=== PATIENT | male | born 1970 | race Caucasian/White ===

== ENCOUNTER → 2022-05-26 11:05 | Outpatient (CLI) | payer BC, SELFPAY ==
--- NOTE | 2022-05-26 11:09 | DI.RAD.S_ITS ---
PROCEDURE: XR KNEE LT 3V INDICATIONS: knee pain TECHNIQUE: 3 views of the knee were acquired. COMPARISON: None. FINDINGS: Bones: No fractures or dislocations. No suspicious bony lesions. Patella enthesophyte. Trace osteophyte formation. Soft tissues: No joint effusion. No suspicious soft tissue calcifications. IMPRESSION: No acute radiographic abnormality. Trace osteophyte formation. Patellar enthesopathy. Consider MRI if there is high concern for internal derangement. Dictated by: Serge Edwards M.D. on 05/26/2022 at 13:01 Approved by: Serge Edwards M.D. on 05/26/2022 at 13:02
[2022-05-26 13:29] LABS: Alanine Aminotransferase 25 IU/L (<50); Albumin Globulin Ratio 1.3 (1.0-2.8); Alkaline Phosphatase 46 U/L (38-126); Aspartate Aminotransferase 25 IU/L (17-59); BUN Creatinine Ratio 18.9 (6-22); Bilirubin Total 0.5 mg/dL (0.2-1.3); Blood Urea Nitrogen 25 mg/dL (9-20); Calcium 9.1 mg/dL (8.4-10.2); Carbon Dioxide 27 mmol/L (22-32); Chloride 106 mmol/L (98-107); Cholesterol 267 mg/dL (140-199); Estimated Glomerular Filt Rate > 60 mL/min (>60); Globulin 3.2 g/dL (1.7-4.1); Glucose 89 mg/dL (70-100); HDL Cholesterol 51 mg/dL (40-60); HEMOLYSIS < 15 (0-50); LDL Cholesterol Calculated 195 mg/dL (<100); Sodium 139 mmol/L (137-145); Total Protein 7.2 g/dL (6.3-8.2); Triglycerides 107 mg/dL (35-150); Uric Acid 7.8 mg/dL (3.5-8.5)
[2022-05-26 14:03] LABS: Prostate Specific Antigen Scrn < 0.064 ng/mL (0.1-4.0)
[2022-05-26 16:43] LABS: Microalbumin Urine Random 34.5 mg/dL (0-1.6)
[2022-05-26 17:50] LABS: Creatinine Urine Random 124.6 mg/dL; Microalbumi Creatinin Ratio Ur 276.8 ug/mg CR (<30)
== END ==
PROVIDERS: Referring Provider Family Medicine; Visit Provider Family Medicine
DX: M10.9 Gout, unspecified; M25.562 Pain in left knee; I10 Essential (primary) hypertension; M77.8 Other enthesopathies, not elsewhere classified; Z85.46 Personal history of malignant neoplasm of prostate
CPT/HCPCS: 36415; 73562; 80053; 80061; 82043; 82570; 84550; G0103

== ENCOUNTER → 2022-06-30 12:27 | Outpatient (CLI) | payer BC, SELFPAY | PROVIDERS: Referring Provider Physician Assistant; Visit Provider Physician Assistant | DX: M22.42 Chondromalacia patellae, left knee (principal); M25.562 Pain in left knee ==

== ENCOUNTER → 2022-07-11 08:09 | Outpatient (CLI) | payer BC, SELFPAY ==
--- NOTE | 2022-07-11 | DI.MRI.S_ITS ---
PROCEDURE: MR KNEE LT WO CON INDICATIONS: Chondromalacia patellae, left knee TECHNIQUE: Noncontrast sagittal PD fast spin echo and T2 fast spin echo with fat saturation, sagittal 3-D FLASH with fat saturation; coronal T1 spin echo and PD fast spin echo with fat saturation, and axial PD fast spin echo with fat saturation through the knee. COMPARISON: [facility], CR, XR KNEE LT 3V, 05/26/2022, 11:31. FINDINGS: Image quality: Excellent. Menisci: No discrete tear of the lateral meniscus. The meniscal popliteal fascicles are intact. Complex tear of the posterior horn of the medial meniscus, almost extending to the root, also involving the free edge of the body. Cruciate ligaments: Intact. Medial structures: MCL is intact. The anserine tendons and semimembranosus are intact. No Barnhart's cyst. Lateral structures: The iliotibial band, LCL/biceps conjoined tendon, and popliteus are intact. Anterior structures: Some thickening of the quadriceps insertion could be due to enthesopathy. The extensor mechanism is otherwise intact. No significant Hoffa's fat pad edema. Trace prepatellar edema. Intact medial retinaculum. Bones and cartilage: No acute fracture. Moderate chondromalacia of the medial compartment with heterogeneity with multiple high-grade partial-thickness defects. Similar findings are seen in the patellofemoral cartilage. There is relative sparing of the lateral cartilage. Joint space: Small joint effusion. IMPRESSION: Moderate overall arthrosis with relative sparing of the lateral compartment. Complex tear of the medial meniscus. Small joint effusion. Dictated by: Serge Edwards M.D. on 07/11/2022 at 10:46 Approved by: Serge Edwrads M.D. on 07/11/2022 at 10:52
== END ==
PROVIDERS: PCP Family Medicine; Referring Provider Physician Assistant; Visit Provider Physician Assistant
DX: S83.232A Complex tear of medial meniscus, current injury, left knee, initial encounter (principal); M22.42 Chondromalacia patellae, left knee; M25.462 Effusion, left knee
CPT/HCPCS: 73721

== ENCOUNTER → 2022-10-22 08:53 | Outpatient (CLI) | payer BC, SELFPAY ==
--- NOTE | 2022-10-22 | DI.ECHO.S_ITS ---
[facility]---------+ [facility] +---------+ : : [address] : [place] : : : : [id number] : : : : Phone: [phone]+ Echocardiogram Report + + :Name: CRISS CHAMBERS Study Date: 10/22/2022 Height: 69 in : :[facility] ReadingLocation: Weight: 236 lb : : Gender: Male BSA: 2.2 m2 : :: 1970 Age: 51 yrs BP: 155/100 mmHg: :Reason For Study: AORTIC VALVE DISORDER : :Ordering Physician: GIL, : :KYLAH Barrera Performed By: Julianna Messina : :Referring: KYLAH CUMMIGNS : + + Interpretation Summary There is mild concentric left ventricular hypertrophy. The ejection fraction is estimated to be 55-60%. Diastolic function could not be accurately assessed due to contradictory data. The right ventricle is normal in size and function. The aortic bioprosthetic valve is well-seated. There is possible mild prosthesis stenosis versus patient prosthesis mismatch. Overall effective orifice area is normal. There is mild tricuspid regurgitation. The right ventricular systolic pressure is estimated to be at least 21 mmHg based on an estimated right atrial pressure of 3 mm Hg. The ascending aorta is moderately enlarged. Procedure: A two-dimensional transthoracic echocardiogram with color flow and Doppler was performed. The study quality was technically adequate. There is no prior echocardiogram noted for this patient. The patient was in sinus rhythm with heart rates between 75-84 bpm during the exam. Left Ventricle: There is mild concentric left ventricular hypertrophy. The left ventricle is normal in size. Proximal septal thickening is noted. The ejection fraction is estimated to be 55-60%. Diastolic function could not be accurately assessed due to contradictory data. Right Ventricle: The right ventricle is normal in size and function. Atria: The left atrium is moderately dilated. Right atrial size is normal. There is no Doppler evidence for an interatrial shunt. Mitral Valve: There is mild mitral annular calcification. The mitral valve leaflets appear mildly thickened, but open well. There is mild mitral regurgitation. Aortic Valve: There is a bioprosthetic aortic valve. The prosthetic aortic valve is well-seated. The peak aortic velocity is 3.2 m/sec. The aortic valve mean gradient is 25 mmHg. EOA 1.32 pigment processor?, indexed EOA 0.6 pigment processor?/mA?. DVI 0.35. AT 98 ms. There is trace aortic regurgitation. Tricuspid Valve: The tricuspid valve is normal in structure and function. There is mild tricuspid regurgitation. The right ventricular systolic pressure is estimated to be at least 21 mmHg based on an estimated right atrial pressure of 3 mm Hg. Pulmonic Valve: The pulmonic valve leaflets are thin and pliable; valve motion is normal. There is mild pulmonic regurgitation. Great Vessels: The ascending aorta is moderately enlarged. The IVC is of normal diameter and collapses greater than 50% with a sniff. This suggests a low right atrial pressure of 3 mm Hg. Pericardium/ Pleura There is no pericardial effusion. There is no pleural effusion. MMode/2D Measurements & Calculations LVIDd: 5.0 cm LVOT diam: 2.2 cm LVIDs: 2.8 cm asc Aorta Diam: 4.5 cm FS: 43.5 % Ao Arch Diam (Prox Trans): 3.0 cm EPSS: 0.79 cm IVSd: 1.1 cm LVPWd: 1.1 cm LV gonzales. diameter/BSA (cm/m^2): 2.3 LV sys. diameter/BSA (cm/m^2): 1.3 LA A2 area: 29.4 cm2 RA long axis: 5.3 cm LA A4 area: 19.8 cm2 RA area: 16.8 cm2 LA length (vol): 5.0 cm RA vol: 45.1 ml LA vol: 98.7 ml RA : 20.4 ml/m2 LA vol index: 44.5 ml/m2 IVC diam: 1.4 cm RVD1 (basal): 3.9 cm TAPSE: 1.5 cm Doppler Measurements & Calculations Ao V2 max: 290.4 cm/sec LVOT Max Arthur: 102.5 cm/sec Ao V2 mean: 216.0 cm/sec LV V1 max P.2 mmHg Ao max P.6 mmHg LV V1 VTI: 22.7 cm Ao mean P.2 mmHg BJ(I,D): 1.4 cm2 Ao V2 VTI: 60.1 cm BJ(V,D): 1.3 cm2 sev ratio: 0.38 BJ indexed to BSA (cm^2/m^2): 0.63 MV E max arthur: 71.4 cm/sec TR max arthur: 214.6 cm/sec MV A max arthur: 73.0 cm/sec TR max P.4 mmHg MV E/A: 0.98 PA V2 max: 86.7 cm/sec Med Peak E' Arthur: 5.2 cm/sec PA V2 mean: 68.9 cm/sec E/E' med: 13.8 PA mean P.0 mmHg Lat Peak E' Arthur: 7.3 cm/sec PA pr(Accel): 24.2 mmHg E/E' lat: 9.7 E/e' average: 11.8 MV dec time: 0.23 sec SV(LVOT): 83.9 ml Reading Physician:11:54 AM
== END ==
PROVIDERS: PCP Family Medicine; Referring Provider Internal Medicine Cardiovascular Disease; Visit Provider Internal Medicine Cardiovascular Disease
DX: I08.1 Rheumatic disorders of both mitral and tricuspid valves (principal); I77.89 Other specified disorders of arteries and arterioles; Z95.2 Presence of prosthetic heart valve
CPT/HCPCS: 93306

== ENCOUNTER → 2023-02-05 09:43 | Outpatient (CLI) | payer BC, SELFPAY ==
--- NOTE | 2023-02-05 09:46 | DI.RAD.S_ITS ---
PROCEDURE: XR KUB INDICATIONS: Renal calculi TECHNIQUE: One view of the abdomen acquired. COMPARISON: None. FINDINGS: Surgical changes and devices: None. Bowel: Bowel gas pattern is normal. Soft tissues: No suspicious abdominal calcifications. Visualized solid organ contours appear normal in size. Bones: No suspicious bony lesions. IMPRESSION: No definitive calcifications overlying the renal shadows or the expected course of the ureters. Dictated by: Roxy Pavon M.D. on 02/05/2023 at 18:42 Approved by: Roxy Pavon M.D. on 02/05/2023 at 18:42
[2023-02-05 11:31] LABS: Creatinine Urine Random 201.1 mg/dL
[2023-02-05 11:39] LABS: Blood Urea Nitrogen 21 mg/dL (9-20); Calcium 9.6 mg/dL (8.4-10.2); Carbon Dioxide 28 mmol/L (22-32); Chloride 104 mmol/L (98-107); Cholesterol 317 mg/dL (140-199); Estimated Glomerular Filt Rate 60 mL/min (>60); Glucose 88 mg/dL (70-100); HDL Cholesterol 46 mg/dL (40-60); HEMOLYSIS < 15 (0-50); LDL Cholesterol Calculated 236 mg/dL (<100); Potassium 4.8 mmol/L (3.4-5.1); Sodium 140 mmol/L (137-145); Triglycerides 173 mg/dL (35-150)
[2023-02-05 11:52] LABS: Microalbumi Creatinin Ratio Ur 498.7 ug/mg CR (<30); Microalbumin Urine Random 100.3 mg/dL (0-1.6)
[2023-02-05 12:02] LABS: Prostate Specific Antigen < 0.064 ng/mL (0.10-4.00)
[2023-02-07 10:21] LABS: PSA, Total < 0.1 ng/mL (0.0-4.0)
== END ==
PROVIDERS: PCP Family Medicine; Referring Provider Urology; Visit Provider Urology
DX: N20.0 Calculus of kidney (principal); I10 Essential (primary) hypertension; Z85.46 Personal history of malignant neoplasm of prostate
CPT/HCPCS: 36415; 74018; 80048; 80061; 82043; 82570; 84153; 84154

== ENCOUNTER → 2023-04-22 08:40 | Outpatient (CLI) | payer BC, SELFPAY ==
[2023-04-22 10:06] LABS: Alanine Aminotransferase 31 IU/L (<50); Albumin 4.1 g/dL (3.5-5.0); Albumin Globulin Ratio 1.5 (1.0-2.8); Alkaline Phosphatase 58 U/L (38-126); Aspartate Aminotransferase 33 IU/L (17-59); BUN Creatinine Ratio 13.5 (6-22); Bilirubin Total 0.3 mg/dL (0.2-1.3); Blood Urea Nitrogen 23 mg/dL (9-20); Calcium 9.4 mg/dL (8.4-10.2); Carbon Dioxide 30 mmol/L (22-32); Chloride 105 mmol/L (98-107); Cholesterol 266 mg/dL (140-199); Estimated Glomerular Filt Rate 47 mL/min (>60); Globulin 2.8 g/dL (1.7-4.1); Glucose 99 mg/dL (70-100); HDL Cholesterol 48 mg/dL (40-60); HEMOLYSIS < 15 (0-50); LDL Cholesterol Calculated 192 mg/dL (<100); Magnesium 1.9 mg/dL (1.6-2.3); Potassium 4.7 mmol/L (3.4-5.1); Sodium 141 mmol/L (137-145); Total Protein 6.9 g/dL (6.3-8.2); Triglycerides 131 mg/dL (35-150)
[2023-04-22 10:28] LABS: Add Manual Diff / Slide Review NO; Basophils Absolute Auto 0 /uL (0-100); Basophils Percent Auto 0.8 % (0-2); Eosinophils Absolute Auto 100 /uL (0-450); Eosinophils Percent Auto 1.8 % (2-4); Hematocrit 40.3 % (41-53); Hemoglobin 13.4 g/dL (13.5-17.5); Lymphocytes Absolute Auto 2100 /uL (1100-4500); Lymphocytes Percent Auto 40.6 % (25-40); Mean Corpuscular HGB Conc 33.3 % (30-36); Mean Corpuscular Hemoglobin 29.4 PG (26-34); Mean Corpuscular Volume 88.1 fL (80-100); Monocytes Absolute Auto 300 /uL (0-900); Monocytes Percent Auto 6.7 % (3-14); Neutrophils Absolute Auto 2600 /uL (1500-7000); Neutrophils Percent Auto 50.1 % (50-75); Platelet Count 202 X10^3/uL (150-400); Red Blood Cell Count 4.57 X10^6/uL (4.5-5.9); Red Cell Distribution Width 13.8 % (11.6-14.8); White Blood Cell Count 5.1 X10^3/uL (4.5-11.0)
[2023-04-23 04:38] LABS: x Labcorp Estim. Avg Glu (eAG) 120 mg/dL (.); x Labcorp Hemoglobin A1c 5.8 % (4.8-5.6)
== END ==
PROVIDERS: PCP Family Medicine; Referring Provider Internal Medicine Cardiovascular Disease; Visit Provider Internal Medicine Cardiovascular Disease
DX: I35.9 Nonrheumatic aortic valve disorder, unspecified (principal); I10 Essential (primary) hypertension; E78.5 Hyperlipidemia, unspecified; Z13.29 Encounter for screening for other suspected endocrine disorder; Z13.1 Encounter for screening for diabetes mellitus
CPT/HCPCS: 36415; 80053; 80061; 83036; 83735; 84443; 85025

== ENCOUNTER → 2023-06-15 11:18 | Outpatient (CLI) | payer BC, SELFPAY ==
[2023-06-15 12:21] LABS: Add Manual Diff / Slide Review NO; Basophils Absolute Auto 0 /uL (0-100); Basophils Percent Auto 0.7 % (0-2); Eosinophils Absolute Auto 0 /uL (0-450); Eosinophils Percent Auto 0.5 % (2-4); Hematocrit 40.9 % (41-53); Hemoglobin 13.7 g/dL (13.5-17.5); Lymphocytes Absolute Auto 2100 /uL (1100-4500); Lymphocytes Percent Auto 37.8 % (25-40); Mean Corpuscular HGB Conc 33.6 % (30-36); Mean Corpuscular Hemoglobin 29.4 PG (26-34); Mean Corpuscular Volume 87.5 fL (80-100); Monocytes Absolute Auto 400 /uL (0-900); Monocytes Percent Auto 6.6 % (3-14); Neutrophils Absolute Auto 3000 /uL (1500-7000); Neutrophils Percent Auto 54.4 % (50-75); Platelet Count 209 X10^3/uL (150-400); Red Blood Cell Count 4.67 X10^6/uL (4.5-5.9); Red Cell Distribution Width 13.5 % (11.6-14.8); White Blood Cell Count 5.5 X10^3/uL (4.5-11.0)
[2023-06-15 12:45] LABS: BUN Creatinine Ratio 16.5 (6-22); Blood Urea Nitrogen 26 mg/dL (9-20); Calcium 9.7 mg/dL (8.4-10.2); Carbon Dioxide 30 mmol/L (22-32); Chloride 103 mmol/L (98-107); Estimated Glomerular Filt Rate 52 mL/min (>60); Glucose 93 mg/dL (70-100); HEMOLYSIS < 15 (0-50); Potassium 4.5 mmol/L (3.4-5.1); Sodium 138 mmol/L (137-145)
[2023-06-15 13:15] LABS: Prostate Specific Antigen < 0.064 ng/mL (0.10-4.00)
[2023-06-15 13:17] LABS: Testosterone 253 ng/dL (71.8-623)
== END ==
PROVIDERS: Urology; PCP Family Medicine; Referring Provider Family Medicine; Visit Provider Family Medicine
DX: R79.89 Other specified abnormal findings of blood chemistry (principal); E66.9 Obesity, unspecified; I10 Essential (primary) hypertension; R53.83 Other fatigue; D64.9 Anemia, unspecified; Z85.46 Personal history of malignant neoplasm of prostate; Z90.79 Acquired absence of other genital organ(s)
CPT/HCPCS: 36415; 80048; 84153; 84403; 85025

== ENCOUNTER → 2023-06-24 18:42 | Outpatient (CLI) | payer BC, SELFPAY ==
--- NOTE | 2023-06-24 | DI.MRI.S_ITS ---
PROCEDURE: MR KNEE RT WO CON INDICATIONS: TEAR OF MEDIAL MENISCUS OF RIGHT KNEE TECHNIQUE: Noncontrast sagittal PD fast spin echo and T2 fast spin echo with fat saturation, sagittal 3-D FLASH with fat saturation; coronal T1 spin echo and PD fast spin echo with fat saturation, and axial PD fast spin echo with fat saturation through the knee. COMPARISON: None FINDINGS: Image quality: Excellent. Menisci: There is linear horizontal high T2 signal intensity traversing the inner, middle, and peripheral thirds of the medial meniscal body and posterior horn, demonstrating superior articular surface extension, indicating horizontal tearing. Truncation of the free edge of the medial meniscal body is present, indicating radial tearing. There is linear horizontal high T2 signal intensity traversing the inner, middle, and peripheral thirds of the lateral meniscal body, demonstrating inferior articular surface extension, indicating horizontal tearing. Cruciate ligaments: The anterior and posterior cruciate ligaments appear intact. Medial structures: The medial collateral ligament appears intact, and demonstrates mild surrounding T2 signal elevation. Visualized portions of the pes anserinus tendons appear normal. No abnormal bursal fluid. Lateral structures: The lateral collateral ligament, long and short heads of the biceps femoris tendon appear intact. The popliteus tendon appears normal. Iliotibial band appears normal. Anterior structures: The quadriceps and patellar tendons appear intact. Patellar alignment is normal. No femoral trochlear dysplasia or ventral trochlear prominence. No edema in the infrapatellar fat pad. Bones and cartilage: No bone marrow contusions or fractures. There is moderate articular cartilage loss diffusely overlying the weight-bearing aspects of the medial femoral condyle and medial tibial plateau. Articular cartilage fibrillation overlies the medial and lateral patellar facets. Joint space: There is physiologic knee joint fluid. No Barnhart's cyst. Normal appearing synovial plicae are incidentally noted. IMPRESSION: 1. Medial and lateral meniscal tearing. 2. Low-grade medial collateral ligament strain. 3. Medial and patellofemoral compartment articular cartilage loss. Dictated by: Pennie Head M.D. on 06/25/2023 at 9:09 Approved by: Pennie Head M.D. on 06/25/2023 at 9:11
== END ==
PROVIDERS: PCP Family Medicine; Referring Provider Physician Assistant Medical; Visit Provider Physician Assistant Medical
DX: S83.241A Other tear of medial meniscus, current injury, right knee, initial encounter (principal); S83.281A Other tear of lateral meniscus, current injury, right knee, initial encounter; S83.411A Sprain of medial collateral ligament of right knee, initial encounter; X58.XXXA Exposure to other specified factors, initial encounter
CPT/HCPCS: 73721

== ENCOUNTER → 2023-09-07 10:22 | Outpatient (CLI) | payer BC, SELFPAY ==
[2023-09-07 12:40] LABS: Alanine Aminotransferase 28 IU/L (<50); Albumin 4.4 g/dL (3.5-5.0); Albumin Globulin Ratio 1.4 (1.0-2.8); Alkaline Phosphatase 54 U/L (38-126); Aspartate Aminotransferase 26 IU/L (17-59); BUN Creatinine Ratio 15.1 (6-22); Bilirubin Total 0.6 mg/dL (0.2-1.3); Blood Urea Nitrogen 28 mg/dL (9-20); Carbon Dioxide 31 mmol/L (22-32); Chloride 101 mmol/L (98-107); Cholesterol 252 mg/dL (140-199); Estimated Glomerular Filt Rate 42 mL/min (>60); Globulin 3.1 g/dL (1.7-4.1); Glucose 89 mg/dL (70-100); HDL Cholesterol 42 mg/dL (40-60); HEMOLYSIS < 15 (0-50); LDL Cholesterol Calculated 170 mg/dL (<100); Potassium 4.7 mmol/L (3.4-5.1); Sodium 138 mmol/L (137-145); Total Protein 7.5 g/dL (6.3-8.2); Triglycerides 200 mg/dL (35-150)
[2023-09-07 13:13] LABS: Testosterone 235 ng/dL (71.8-623)
[2023-09-07 16:34] LABS: Microalbumi Creatinin Ratio Ur 65.1 ug/mg CR (<30); Microalbumin Urine Random 8.4 mg/dL (0-1.6)
== END ==
PROVIDERS: PCP Family Medicine; Referring Provider Urology; Visit Provider Urology
DX: I10 Essential (primary) hypertension (principal); R68.82 Decreased libido; Z85.46 Personal history of malignant neoplasm of prostate
CPT/HCPCS: 36415; 80053; 80061; 82043; 82570; 84403

== ENCOUNTER → 2023-09-14 10:44 | Outpatient (CLI) | payer BC, SELFPAY ==
[2023-09-14 12:35] LABS: Testosterone 276 ng/dL (71.8-623)
== END ==
PROVIDERS: PCP Family Medicine; Referring Provider Urology; Visit Provider Urology
DX: R68.82 Decreased libido (principal)
CPT/HCPCS: 36415; 84403

== ENCOUNTER → 2023-09-24 12:38 | Outpatient (CLI) | payer BC, SELFPAY ==
--- NOTE | 2023-09-24 12:30 | DI.US.S_ITS ---
PROCEDURE: US RENAL COMPLETE INDICATIONS: ELEVATED CREATININE TECHNIQUE: Real-time scanning was performed of the kidneys and bladder, with image documentation. COMPARISON: [facility], MR, MR ANGIO CHEST, 04/07/2023, 16:05. FINDINGS: Kidneys: Kidneys are normal in size. Right kidney measures 9.3 cm long; left kidney measures 9.5 cm long. Right renal cortical thickness is 1.8 cm; left renal cortical thickness is 2.3 cm. Renal cortical echotexture is normal. No hydronephrosis . There are bilateral nonobstructing renal stones. The measure 8 mm on the left and up to 1.1 cm on the right. There is a 1.2 cm inferior right renal cyst. There is a 3.1 x 2.7 x 3.4 cm isoechoic solid mass in the anterior, mid cortex of the left kidney. This appears to be partially exophytic.. No suspicious solid mass lesions in the right kidney. Bladder: Pre-void bladder volume is 159 mL. Post-void residual is 0 mL. Pre-void images demonstrate no intraluminal masses or stones. On pre-void images, bilateral ureteral jets are noted with color Doppler interrogation. (Of note, ureteral jets may not be detectable in up to 25% of cases due to insufficient differences in specific gravity between ureteral and bladder urine). Miscellaneous: No free pelvic fluid. IMPRESSION: 1. There is a 3.4 cm isoechoic partially exophytic mass in the left kidney. Recommend further characterization with multiphasic contrast enhanced CT or MRI of the abdomen using renal mass protocol. 2. Nonobstructing bilateral renal stones measuring up to 1.1 cm on the right and 0.8 cm on the left. Dictated by: Ramon Bell M.D. on 09/24/2023 at 16:09 Approved by: Ramon Bell M.D. on 09/24/2023 at 16:13
== END ==
PROVIDERS: PCP Family Medicine; Referring Provider Family Medicine; Visit Provider Family Medicine
DX: N28.89 Other specified disorders of kidney and ureter (principal); N20.0 Calculus of kidney; R79.89 Other specified abnormal findings of blood chemistry
CPT/HCPCS: 76770

== ENCOUNTER → 2023-09-29 12:23 | Outpatient (CLI) | payer BC, SELFPAY ==
--- NOTE | 2023-09-29 12:24 | DI.RAD.S_ITS ---
PROCEDURE: XR KUB INDICATIONS: Evaluate abnormality noted on ultrasound TECHNIQUE: One view of the abdomen acquired. COMPARISON: [facility], US, US RENAL COMPLETE, 09/24/2023, 12:45. [facility], CR, XR KUB, 02/05/2023, 9:43. FINDINGS: Surgical changes and devices: None. Bowel: Bowel gas pattern is normal. Soft tissues: Ill-defined calcification overlying the right renal shadow as well as a questionable calcification overlying the left renal shadow. It is noted calcifications are identified on ultrasound. Visualized solid organ contours appear normal in size. Bones: No suspicious bony lesions. IMPRESSION: Bilateral calcifications as seen on ultrasound most suggestive of renal calculi. Exophytic left renal mass identified on ultrasound cannot be evaluated on x-ray. CT or MRI is recommended for further evaluation. Dictated by: Roxy Pavon M.D. on 09/29/2023 at 15:57 Approved by: Roxy Pavon M.D. on 09/29/2023 at 15:58
[2023-09-29 14:29] LABS: BUN Creatinine Ratio 16.2 (6-22); Blood Urea Nitrogen 30 mg/dL (9-20); Calcium 10.6 mg/dL (8.4-10.2); Carbon Dioxide 26 mmol/L (22-32); Chloride 100 mmol/L (98-107); Cholesterol 262 mg/dL (140-199); Estimated Glomerular Filt Rate 43 mL/min (>60); Glucose 93 mg/dL (70-100); HDL Cholesterol 40 mg/dL (40-60); HEMOLYSIS < 15 (0-50); LDL Cholesterol Calculated 190 mg/dL (<100); Potassium 4.3 mmol/L (3.4-5.1); Sodium 138 mmol/L (137-145); Triglycerides 160 mg/dL (35-150)
[2023-09-29 14:50] LABS: Testosterone 257 ng/dL (71.8-623)
[2023-09-29 15:18] LABS: Estradiol, Total 17.6 pg/mL
== END ==
PROVIDERS: PCP Family Medicine; Referring Provider Family Medicine; Visit Provider Urology
DX: N20.0 Calculus of kidney (principal); E78.5 Hyperlipidemia, unspecified; R79.89 Other specified abnormal findings of blood chemistry; R68.82 Decreased libido; Z87.442 Personal history of urinary calculi
CPT/HCPCS: 36415; 74018; 80048; 80061; 82670; 84403

== ENCOUNTER → 2023-10-01 16:43 | Outpatient (CLI) | payer BC, SELFPAY ==
--- NOTE | 2023-10-01 16:45 | DI.MRI.S_ITS ---
PROCEDURE: MR ABDOMEN RENAL PROTOCOL INDICATIONS: Evaluate abnormality noted on ultrasound TECHNIQUE: Coronal HASTE through abdomen and pelvis; axial 2D FLASH in- and [id number] (with and without fat saturation), and breath-hold T2 FSE from the hepatic dome to the bottom of the kidneys. Coronal HASTE MR urogram of kidneys and bladder. Dynamic coronal VIBE during IV gadolinium administration; postgadolinium axial VIBE or 2D FLASH with fat saturation from the hepatic dome through the kidneys. COMPARISON: [facility], , RENAL COMPLETE, 09/24/2023, 12:45. FINDINGS: Image quality: Excellent. Genitourinary system: Margins of each kidney are quite lobulated with several areas of cortical thinning in each kidney, and underlying irregular calyceal distortion present bilaterally. There are a few cortical cysts present. Renal parenchyma enhances symmetrically and uniformly given slightly distorted underlying renal architecture. A discrete enhancing mass is not identified. No hydronephrosis. No hydroureter. Lung bases and heart: Median sternotomy and aortic valvuloplasty. Normal size heart. No pleural effusion. Liver: No solid mass. Gallbladder and biliary tree: Decompressed gallbladder. Nondilated biliary tree. Spleen: No splenomegaly. Pancreas: No pancreatic ductal dilation. Adrenals: No adrenal nodule. Bowel and peritoneum: No bowel distension. No pathologic free fluid. Lymph nodes: No central or retroperitoneal adenopathy. Vessels: No infrarenal aortic aneurysm. Bones: No aggressive osseous abnormality. Other: No significant ventral hernia. IMPRESSION: 1. Markedly lobulated renal contour bilaterally resulting in the appearance of partially exophytic cortical mass on ultrasound. No definite renal mass is identified. 2. Renal morphology may be secondary to scarring from remote prior infection, prior obstruction, infarction, or may be physiologic in the absence of prior surgical intervention. Dictated by: Roberta Montilla M.D. on 10/02/2023 at 9:33 Approved by: Roberta Montilla M.D. on 10/02/2023 at 9:50
== END ==
PROVIDERS: PCP Family Medicine; Referring Provider Urology; Visit Provider Urology
DX: N28.89 Other specified disorders of kidney and ureter (principal); R79.89 Other specified abnormal findings of blood chemistry
CPT/HCPCS: 74183; A9579

== ENCOUNTER → 2024-04-05 14:32 | Outpatient (CLI) | payer BC, SELFPAY ==
[2024-04-05 16:10] LABS: Creatinine Urine Random 24.58 mg/dL; Protein (Total) Urine Random 34 mg/dL (0-12); Protein Creatinine Ratio Urine 1.38 GRAM/24H
[2024-04-05 17:01] LABS: Alanine Aminotransferase 29 IU/L (<50); Albumin 4.4 g/dL (3.5-5.0); Albumin Globulin Ratio 1.4 (1.0-2.8); Alkaline Phosphatase 60 U/L (38-126); Aspartate Aminotransferase 31 IU/L (17-59); BUN Creatinine Ratio 13.1 (6-22); Bilirubin Total 0.5 mg/dL (0.2-1.3); Blood Urea Nitrogen 20 mg/dL (9-20); Calcium 9.4 mg/dL (8.4-10.2); Carbon Dioxide 28 mmol/L (22-32); Chloride 104 mmol/L (98-107); Estimated Glomerular Filt Rate 53 mL/min (>60); Globulin 3.2 g/dL (1.7-4.1); Glucose 83 mg/dL (70-100); HEMOLYSIS < 15 (0-50); Phosphorous 2.5 mg/dL (2.5-4.5); Potassium 4.3 mmol/L (3.4-5.1); Sodium 138 mmol/L (137-145); Total Protein 7.6 g/dL (6.3-8.2)
[2024-04-05 17:08] LABS: NT-proBNP (BNP-Adult 18+) 323 pg/mL (<125)
== END ==
LOC: LAB 14:39
PROVIDERS: PCP Family Medicine; Referring Provider Internal Medicine Nephrology; Visit Provider Internal Medicine Nephrology
DX: N05.9 Unspecified nephritic syndrome with unspecified morphologic changes (principal); I50.32 Chronic diastolic (congestive) heart failure; N25.81 Secondary hyperparathyroidism of renal origin; R80.9 Proteinuria, unspecified; E55.9 Vitamin D deficiency, unspecified
CPT/HCPCS: 36415; 80053; 82306; 82570; 83880; 83970; 84100; 84156

== ENCOUNTER → 2024-05-03 07:57 | Outpatient (CLI) | payer BC, SELFPAY ==
--- NOTE | 2024-05-03 | DI.ECHO.S_ITS ---
[facility]---------+ [facility] : : [address] : : [place] : : [id number] : : Phone: [phone] Echocardiogram Report + + :Name: CATHY CHAMBERS Study Date: 05/03/2024 Height: 70 in : :Hospital ReadingLocation: Weight: 232 lb : : Gender: Male BSA: 2.2 m2 : :: 1970 Age: 53 yrs BP: 142/109 mmHg: :Reason For Study: PRESENCE OF XENOGENIC HEART VALVE : :Ordering Physician: GIL, : :KYLAH Barrera Performed By: Julianna Messina : :Referring: KYLAH CUMMINGS : + + Interpretation Summary There is mild concentric left ventricular hypertrophy. The ejection fraction is estimated to be 55-60%. Diastolic function could not be accurately assessed due to contradictory data. The left atrium is borderline dilated. The right ventricle is normal in size and function. There is mild mitral regurgitation. There is a well-seated prosthetic aortic valve with mildly elevated gradients but normal indexed EOA. Pulmonary artery pressures cannot be estimated because of the lack of a measurable TR jet velocity but the IVC suggests a CVP of around 3 mmHg. The ascending aorta is moderately enlarged, 4.5 cm. Compared to the prior study dated 10/22/2022, no significant change. Procedure: A two-dimensional transthoracic echocardiogram with color flow and Doppler was performed. The study quality was technically adequate. Comparison is made with the echocardiogram of 10/22/2022. The patient was in sinus rhythm with heart rates between 75-88 bpm during the exam. Left Ventricle: The left ventricle is normal in size. There is mild concentric left ventricular hypertrophy. The ejection fraction is estimated to be 55-60%. Diastolic function could not be accurately assessed due to contradictory data. Right Ventricle: The right ventricle is normal in size and function. Atria: The left atrium is borderline dilated. Right atrial size is normal. There is no Doppler evidence for an interatrial shunt. Mitral Valve: The mitral valve is normal. There is mild mitral annular calcification. There is mild mitral regurgitation. Aortic Valve: There is a prosthetic aortic valve. The peak aortic velocity is 2.9 m/sec. The aortic valve mean gradient is 21 mmHg. The calculated aortic valve area is 1.3 cm2. There is trace aortic regurgitation. Tricuspid Valve: The tricuspid valve is normal in structure and function. There is trace tricuspid regurgitation. Pulmonary artery pressures cannot be estimated because of the lack of a measurable TR jet velocity but the IVC suggests a CVP of around 3 mmHg. Pulmonic Valve: The pulmonic valve leaflets are thin and pliable; valve motion is normal. There is no pulmonic valvular regurgitation. Great Vessels: The aortic root is normal size. The ascending aorta is moderately enlarged. The IVC is of normal diameter and collapses greater than 50% with a sniff. This suggests a low right atrial pressure of 3 mm Hg. Pericardium/ Pleura There is no pericardial effusion. There is no pleural effusion. MMode/2D Measurements & Calculations LVIDd: 4.2 cm LVOT diam: 2.2 cm LVIDs: 2.9 cm Ao root diam: 2.6 cm FS: 30.2 % asc Aorta Diam: 4.5 cm IVSd: 1.4 cm Ao Arch Diam (Prox Trans): 3.7 cm LVPWd: 1.1 cm LV gonzales. diameter/BSA (cm/m^2): 1.9 LV sys. diameter/BSA (cm/m^2): 1.3 LA A2 area: 24.0 cm2 RA long axis: 5.1 cm LA A4 area: 18.9 cm2 RA area: 16.2 cm2 LA length (vol): 5.0 cm RA vol: 43.7 ml LA vol: 77.6 ml RA : 19.7 ml/m2 LA vol index: 34.9 ml/m2 IVC diam: 1.3 cm RVD1 (basal): 4.0 cm RVD2 (mid): 3.0 cm TAPSE: 1.5 cm Doppler Measurements & Calculations Ao V2 max: 282.6 cm/sec LVOT Max Arthur: 96.2 cm/sec Ao V2 mean: 209.0 cm/sec LV V1 max P.7 mmHg Ao max P.7 mmHg LV V1 VTI: 18.5 cm Ao mean P.9 mmHg BJ(I,D): 1.4 cm2 Ao V2 VTI: 50.3 cm BJ(V,D): 1.3 cm2 sev ratio: 0.37 BJ indexed to BSA (cm^2/m^2): 0.65 MV E max arthur: 61.6 cm/sec PA V2 max: 92.5 cm/sec MV A max arthur: 77.7 cm/sec PA V2 mean: 65.7 cm/sec MV E/A: 0.79 PA mean P.9 mmHg Med Peak E' Arthur: 6.7 cm/sec PA pr(Accel): 19.1 mmHg E/E' med: 9.2 Lat Peak E' Arthur: 7.0 cm/sec E/E' lat: 8.8 E/e' average: 9.0 MV dec time: 0.22 sec SV(LVOT): 72.7 ml Reading Physician:12:58 PM
== END ==
PROVIDERS: PCP Family Medicine; Referring Provider Internal Medicine Cardiovascular Disease; Visit Provider Internal Medicine Cardiovascular Disease
DX: I34.81 Nonrheumatic mitral (valve) annulus calcification (principal); I34.0 Nonrheumatic mitral (valve) insufficiency; I77.89 Other specified disorders of arteries and arterioles; Z95.3 Presence of xenogenic heart valve
CPT/HCPCS: 93306

== ENCOUNTER → 2025-02-03 15:13 | Outpatient (CLI) | payer OTHER, SELFPAY ==
--- NOTE | 2025-02-03 15:18 | DI.MRI.S_ITS ---
PROCEDURE: MR ANGIO CHEST WO/W CON INDICATIONS: THORACIC AORTIC ANEURYSM TECHNIQUE: Precontrast axial, coronal, and sagittal TruFISP acquired through the thoracic aorta. Dynamic coronal MRA using Care Bolus timing of the thorax during the administration of contrast, with 3-dimensional maximum intensity projection (MIP) reformats performed. COMPARISON: [facility], MR, MR ANGIO CHEST, 10/24/2023, 9:36. [facility], MR, MR ANGIO CHEST, 04/07/2023, 16:05. FINDINGS: Image quality: Excellent. Thoracic aorta: Stable mild aneurysmal dilatation of the ascending aorta, measuring 4.3 cm. Transverse arch and descending thoracic aorta and abdominal aorta are of normal caliber. Great vessels: Classic three-vessel arch anatomy. Great vessel origins are widely patent. Extravascular structures: Unremarkable IMPRESSION: Stable mild aneurysmal dilatation of the ascending aorta, measuring 4.3 cm. Dictated by: Brayan Cheng M.D. on 02/03/2025 at 16:10 Approved by: Brayan Cheng M.D. on 02/03/2025 at 16:11
== END ==
PROVIDERS: PCP Family Medicine; Referring Provider Internal Medicine; Visit Provider Internal Medicine
DX: I71.20 Thoracic aortic aneurysm, without rupture, unspecified (principal)
CPT/HCPCS: C8911; A9579